=== PATIENT | female | born 1970 | race African-American/Black ===

== ENCOUNTER 2018-05-02 17:29 | Inpatient (IN) ==
[2018-05-02] MEDS ORDERED: ENOXAPARIN 30 MG/0.3 ML SYRINGE SUBCUT STA (19:08)
[2018-05-02 19:11] LABS: Basophils % 0.1 % (0.0-0.8); Immature Granulocytes % 0.6 %; Immature Granulocytes Absolute 0.11 #; Lymphocytes % 5.6 % (21.3-54.2); Mean Corpuscular HGB Conc 25.3 GM/DL (32-36); Mean Corpuscular Hemoglobin 16 PG (27-34); Mean Platelet Volume 10.2 FL (9.6-12.0); Monocytes # 1.3 10*3/uL (0.11-0.8); Monocytes % 7.3 % (1.7-12.7); NRBC # 0.03 10*3/uL; Neutrophils # 15.8 10*3/uL (1.4-7.4); Neutrophils % 86.4 % (38.7-73.9); Platelet Count 446 T/CUMM (130-400); Red Blood Count 4.08 MC/CUMM (3.8-5.5); White Blood Count 18.3 T/CUMM (4-12)
[2018-05-02] MEDS ORDERED: ENOXAPARIN 100 MG/ML SYRINGE SUBCUT ONE (19:19)
[2018-05-02 19:27] LABS: Hematocrit 25.5 VOL% (35.7-47.0)
[2018-05-02 19:28] LABS: Hemoglobin 6.7 GM/DL (12.0-16.0)
[2018-05-02 19:37] LABS: Alanine Aminotransferase 14 U/L (13-56); Albumin 2.7 G/DL (3.4-5.0); Alkaline Phosphatase 68 U/L (45-117); Aspartate Amino Transferase 16 U/L (0-37); Bilirubin,Total < 0.39 MG/DL (0.2-1.0); Blood Urea Nitrogen 19 MG/DL (7-18); Calcium 10.8 MG/DL (8.5-10.1); Glucose 120 MG/DL (74-106); Osmolality,Calculated 277.7 MOS/KG (273-304); Sodium 138 MMOL/L (136-145); Total Protein 8.3 G/DL (6.4-8.3)
[2018-05-02] MEDS ORDERED: MORPHINE 4 MG/1 ML VIAL IV PRN (22:05)
[2018-05-02] MEDS ORDERED: ACETAMINOPHEN 325 MG TABLET PO PRN (22:05)
[2018-05-02] MEDS ORDERED: ONDANSETRON 4 MG/2 ML VIAL IV PRN (22:05)
[2018-05-02] MEDS: IRON (CARBONYL)/VIT C/B12/FA TABLET PO SCH (23:16)
[2018-05-03 06:11] LABS: PT Patient Result 10.3 SECS; Partial Thromboplastin Time 23.8 SECS (0-40)
[2018-05-03 06:19] LABS: % Iron Saturation 3.6 % (18-50); Ferritin 19.4 ng/ml (8-252)
[2018-05-03 06:51] LABS: Basophils % 0.1 % (0.0-0.8); Eosinophils % 0.1 % (0.00-10.9); Hematocrit 21.7 VOL% (35.7-47.0); Immature Granulocytes % 0.7 %; Immature Granulocytes Absolute 0.14 #; Lymphocytes # 1.8 10*3/uL (1.4-4.0); Lymphocytes % 9.1 % (21.3-54.2); Mean Corpuscular HGB Conc 26.3 GM/DL (32-36); Mean Corpuscular Hemoglobin 17 PG (27-34); Mean Corpuscular Volume 64.8 FL (87-102); Mean Platelet Volume 10.1 FL (9.6-12.0); Monocytes # 1.6 10*3/uL (0.11-0.8); Monocytes % 8.3 % (1.7-12.7); NRBC # 0.04 10*3/uL; Neutrophils # 15.8 10*3/uL (1.4-7.4); Neutrophils % 81.7 % (38.7-73.9); Platelet Count 322 T/CUMM (130-400); Red Blood Count 3.35 MC/CUMM (3.8-5.5); Red Cell Distribution Width 18.8 % (9.3-17.3); White Blood Count 19.3 T/CUMM (4-12)
[2018-05-03 06:52] LABS: Folate 17.4 NG/ML (5.4-24.0); Vitamin B12 205 PG/ML (211-911)
[2018-05-03 06:58] LABS: Hemoglobin 5.7 GM/DL (12.0-16.0)
[2018-05-03] MEDS ORDERED: SODIUM CHLORIDE 0.9% 1,000 ML IV PRN (07:10)
[2018-05-03 07:42] LABS: Calcium 10.2 MG/DL (8.5-10.1); Potassium 3.8 MMOL/L (3.5-5.1)
[2018-05-03 07:47] LABS: Hypochromasia 1+; Macrocytosis Slight; Ovalocytes Slight; Platelet Estimate Adequate; Polychromasia Slight
[2018-05-03 07:48] LABS: Target Cells Few
[2018-05-03] MEDS: LISINOPRIL/HCTZ 20-25 MG TABLET PO SCH (08:21)
[2018-05-03] MEDS: RIVAROXABAN 15 MG TABLET PO SCH ×2 (08:21→17:06)
[2018-05-03] MEDS: IRON (CARBONYL)/VIT C/B12/FA TABLET PO SCH ×2 (08:21→20:12)
[2018-05-03] MEDS: PANTOPRAZOLE 40 MG TABLET PO SCH (08:22)
[2018-05-03] MEDS: SERTRALINE 50 MG TABLET PO SCH (08:22)
[2018-05-03 08:38] LABS: Sedimentation Rate-Westergren 85 MM/HR (0-20)
[2018-05-03 09:48] LABS: Hemoglobin A1 (Alkaline) 97.4 % (96.5-98.5); Hemoglobin A2 (Alkaline) 2.6 % (1.5-3.5)
[2018-05-03 19:47] LABS: INR 1.1; PT Patient Result 11.9 SECS; Partial Thromboplastin Time 25.6 SECS (0-40)
[2018-05-04 03:38] LABS: Basophils % 0.1 % (0.0-0.8); Eosinophils # 0.2 10*3/uL (0.0-0.87); Eosinophils % 1.2 % (0.00-10.9); Hematocrit 26.4 VOL% (35.7-47.0); Immature Granulocytes % 0.4 %; Immature Granulocytes Absolute 0.05 #; Lymphocytes # 2.8 10*3/uL (1.4-4.0); Lymphocytes % 22.3 % (21.3-54.2); Mean Corpuscular HGB Conc 28.4 GM/DL (32-36); Mean Corpuscular Hemoglobin 19 PG (27-34); Mean Corpuscular Volume 68.2 FL (87-102); Mean Platelet Volume 10.7 FL (9.6-12.0); Monocytes % 7.7 % (1.7-12.7); NRBC # 0.03 10*3/uL; Neutrophils # 8.5 10*3/uL (1.4-7.4); Neutrophils % 68.3 % (38.7-73.9); Platelet Count 435 T/CUMM (130-400); Red Blood Count 3.87 MC/CUMM (3.8-5.5); Red Cell Distribution Width 22.5 % (9.3-17.3); White Blood Count 12.5 T/CUMM (4-12)
[2018-05-04 03:51] LABS: Calcium 9.8 MG/DL (8.5-10.1); Potassium 3.6 MMOL/L (3.5-5.1)
[2018-05-04 03:57] LABS: Hemoglobin 7.5 GM/DL (12.0-16.0)
[2018-05-04] MEDS: PANTOPRAZOLE 40 MG TABLET PO SCH (08:25)
[2018-05-04] MEDS: SERTRALINE 50 MG TABLET PO SCH (08:25)
[2018-05-04] MEDS: IRON (CARBONYL)/VIT C/B12/FA TABLET PO SCH (08:25)
[2018-05-04] MEDS: RIVAROXABAN 15 MG TABLET PO SCH (08:25)
[2018-05-04] MEDS: LISINOPRIL/HCTZ 20-25 MG TABLET PO SCH (08:27)
[2018-05-04 11:33] VITALS: BP 134/77
[2018-05-07 14:46] LABS: Protein S Activity Plasma 153 % (50 - 160)
[2018-05-07 14:58] LABS: Protein C Activity Plasma 96 % (70 - 150)
[2018-05-08 15:10] LABS: Protein C Antigen 76 % (70-150)
== END 2018-05-04 15:28 | disposition home or self-care (01) | DRG 176 ==
LOC: N.ED 17:29 → N.EDINP 21:04 → N.TELES 21:41
PROVIDERS: ADMIT Internal Medicine Nephrology; ATTEND Internal Medicine Nephrology

== ENCOUNTER 2018-05-13 16:56 | Inpatient (IN) ==
[2018-05-13] MEDS ORDERED: SODIUM CHLORIDE 0.9% 1,000 ML IV PRN ×2 (18:38→18:39)
[2018-05-13 18:44] LABS: Basophils % 0.1 % (0.0-0.8); Eosinophils % 0.4 % (0.00-10.9); Hematocrit 24.6 VOL% (35.7-47.0); Immature Granulocytes % 0.6 %; Immature Granulocytes Absolute 0.06 #; Lymphocytes # 1.1 10*3/uL (1.4-4.0); Mean Corpuscular HGB Conc 28.5 GM/DL (32-36); Mean Corpuscular Hemoglobin 20 PG (27-34); Mean Corpuscular Volume 69.5 FL (87-102); Monocytes # 1.5 10*3/uL (0.11-0.8); Monocytes % 14.5 % (1.7-12.7); Neutrophils # 7.6 10*3/uL (1.4-7.4); Neutrophils % 73.4 % (38.7-73.9); Red Blood Count 3.54 MC/CUMM (3.8-5.5); Red Cell Distribution Width 23.9 % (9.3-17.3); White Blood Count 10.4 T/CUMM (4-12)
[2018-05-13 18:47] LABS: Platelet Count 1269 T/CUMM (130-400)
[2018-05-13 18:59] LABS: Alanine Aminotransferase 17 U/L (13-56); Albumin 2.7 G/DL (3.4-5.0); Alkaline Phosphatase 61 U/L (45-117); Aspartate Amino Transferase 23 U/L (0-37); Bilirubin,Total < 0.39 MG/DL (0.2-1.0); Blood Urea Nitrogen 18 MG/DL (7-18); Calcium 10.2 MG/DL (8.5-10.1); Glucose 121 MG/DL (74-106); Osmolality,Calculated 270.2 MOS/KG (273-304); Potassium 3.4 MMOL/L (3.5-5.1); Sodium 134 MMOL/L (136-145); Total Protein 8.7 G/DL (6.4-8.3); Troponin I Only < 0.015 NG/ML (0.00-0.045)
[2018-05-13 19:17] LABS: Platelet Estimate Increased
[2018-05-13] MEDS ORDERED: SODIUM CHLORIDE 0.9% 1,000 ML IV STA (19:38)
[2018-05-13] MEDS ORDERED: MORPHINE 4 MG/1 ML VIAL IV PRN (20:28)
[2018-05-13] MEDS ORDERED: ACETAMINOPHEN 325 MG TABLET PO PRN (21:08)
[2018-05-13] MEDS ORDERED: ONDANSETRON 4 MG/2 ML VIAL IV PRN (21:08)
[2018-05-13] MEDS ORDERED: ACETAMINOPHEN/CODEINE 300-30 MG TABLET PO PRN (21:08)
[2018-05-13] MEDS ORDERED: guaiFENesin/DM ER 600-30 MG TABLET PO PRN (21:08)
[2018-05-13] MEDS ORDERED: PNEUMOCOCCAL VACCINE (13 VALENT) 0.5 ML SYRINGE IM ONE (21:26)
[2018-05-13] MEDS: IRON (CARBONYL)/VIT C/B12/FA TABLET PO SCH (21:33)
[2018-05-13] MEDS: RIVAROXABAN 15 MG TABLET PO SCH (21:33)
[2018-05-14 07:19] LABS: Basophils % 0.3 % (0.0-0.8); Eosinophils # 0.1 10*3/uL (0.0-0.87); Eosinophils % 1.8 % (0.00-10.9); Hematocrit 25.2 VOL% (35.7-47.0); Hemoglobin 7.4 GM/DL (12.0-16.0); Immature Granulocytes % 0.4 %; Immature Granulocytes Absolute 0.03 #; Lymphocytes # 1.5 10*3/uL (1.4-4.0); Lymphocytes % 21.2 % (21.3-54.2); Mean Corpuscular HGB Conc 29.4 GM/DL (32-36); Mean Corpuscular Hemoglobin 22 PG (27-34); Mean Corpuscular Volume 73.5 FL (87-102); Mean Platelet Volume 8.6 FL (9.6-12.0); Monocytes # 1.2 10*3/uL (0.11-0.8); Monocytes % 16.3 % (1.7-12.7); Neutrophils # 4.3 10*3/uL (1.4-7.4); Platelet Count 948 T/CUMM (130-400); Red Blood Count 3.43 MC/CUMM (3.8-5.5); Red Cell Distribution Width 24.1 % (9.3-17.3); White Blood Count 7.2 T/CUMM (4-12)
[2018-05-14 07:43] LABS: Lymphocytes 20 % (20-55); Segmented Neutrophils 66 % (50-85); Total Cells Counted 100
[2018-05-14 07:44] LABS: Hypochromasia 1+; Microcytosis 1+
[2018-05-14 07:52] LABS: Calcium 10.1 MG/DL (8.5-10.1); Osmolality,Calculated 273.8 MOS/KG (273-304); Potassium 3.7 MMOL/L (3.5-5.1)
[2018-05-14] MEDS: SERTRALINE 50 MG TABLET PO SCH (08:21)
[2018-05-14] MEDS: LISINOPRIL/HCTZ 20-25 MG TABLET PO SCH (08:21)
[2018-05-14] MEDS: IRON (CARBONYL)/VIT C/B12/FA TABLET PO SCH (08:21)
[2018-05-14] MEDS: RIVAROXABAN 15 MG TABLET PO SCH ×2 (08:21→18:24)
[2018-05-14] MEDS: PANTOPRAZOLE 40 MG TABLET PO SCH (08:21)
[2018-05-14] MEDS ORDERED: AZITHROMYCIN 250 MG TABLET PO SCH (09:00)
[2018-05-14] MEDS ORDERED: SODIUM CHLORIDE 0.9% 1,000 ML IV PRN (13:02)
[2018-05-14] MEDS: FERROUS SULFATE 325 MG TABLET PO SCH (20:18)
[2018-05-14] MEDS ORDERED: DOCUSATE SODIUM 100 MG CAPSULE PO PRN (22:49)
[2018-05-15 04:56] LABS: Basophils % 0.3 % (0.0-0.8); Eosinophils # 0.2 10*3/uL (0.0-0.87); Eosinophils % 2.6 % (0.00-10.9); Hematocrit 26.5 VOL% (35.7-47.0); Hemoglobin 8.1 GM/DL (12.0-16.0); Immature Granulocytes % 0.1 %; Immature Granulocytes Absolute 0.01 #; Lymphocytes # 2.1 10*3/uL (1.4-4.0); Lymphocytes % 27.5 % (21.3-54.2); Mean Corpuscular HGB Conc 30.6 GM/DL (32-36); Mean Corpuscular Hemoglobin 22 PG (27-34); Mean Platelet Volume 8.8 FL (9.6-12.0); Monocytes # 0.8 10*3/uL (0.11-0.8); Monocytes % 10.3 % (1.7-12.7); Neutrophils # 4.5 10*3/uL (1.4-7.4); Neutrophils % 59.2 % (38.7-73.9); Platelet Count 938 T/CUMM (130-400); Red Blood Count 3.63 MC/CUMM (3.8-5.5); Red Cell Distribution Width 24.3 % (9.3-17.3); White Blood Count 7.6 T/CUMM (4-12)
[2018-05-15 05:25] LABS: Albumin 2.4 G/DL (3.4-5.0); Bilirubin,Total 0.4 MG/DL (0.2-1.0); Calcium 10.1 MG/DL (8.5-10.1); Osmolality,Calculated 273.7 MOS/KG (273-304); Potassium 3.5 MMOL/L (3.5-5.1); Total Protein 7.3 G/DL (6.4-8.3)
[2018-05-15 05:28] LABS: Hypochromasia 2+; Microcytosis 1+; Platelet Estimate Increased; Polychromasia Slight; Target Cells Few
[2018-05-15 05:29] LABS: Burr Cells Few
[2018-05-15] MEDS: RIVAROXABAN 15 MG TABLET PO SCH ×2 (08:51→20:14)
[2018-05-15] MEDS: SERTRALINE 50 MG TABLET PO SCH (08:51)
[2018-05-15] MEDS: PANTOPRAZOLE 40 MG TABLET PO SCH (08:51)
[2018-05-15] MEDS: LISINOPRIL/HCTZ 20-25 MG TABLET PO SCH (08:51)
[2018-05-15] MEDS: FERROUS SULFATE 325 MG TABLET PO SCH ×3 (08:51→20:15)
[2018-05-15] MEDS: CYANOCOBALAMIN 1000 MCG/1 ML VIAL SUBCUT SCH (08:52)
[2018-05-15 11:43] LABS: Hematocrit 28.7 VOL% (35.7-47.0)
[2018-05-15] MEDS: VANCOMYCIN INJ 1,250 MG in SODIUM CHLORIDE 0.9% 250 ML IV SCH ×2 (13:35→20:10)
[2018-05-16] MEDS: VANCOMYCIN INJ 1,250 MG in SODIUM CHLORIDE 0.9% 250 ML IV SCH ×2 (03:01→11:55)
[2018-05-16 05:58] LABS: Basophils % 0.4 % (0.0-0.8); Eosinophils # 0.2 10*3/uL (0.0-0.87); Eosinophils % 3.6 % (0.00-10.9); Hematocrit 28.8 VOL% (35.7-47.0); Hemoglobin 8.8 GM/DL (12.0-16.0); Immature Granulocytes % 0.3 %; Immature Granulocytes Absolute 0.02 #; Lymphocytes % 29.6 % (21.3-54.2); Mean Corpuscular HGB Conc 30.6 GM/DL (32-36); Mean Corpuscular Hemoglobin 23 PG (27-34); Mean Corpuscular Volume 74.8 FL (87-102); Mean Platelet Volume 8.8 FL (9.6-12.0); Monocytes # 0.5 10*3/uL (0.11-0.8); Neutrophils # 3.9 10*3/uL (1.4-7.4); Neutrophils % 58.1 % (38.7-73.9); Platelet Count 836 T/CUMM (130-400); Red Blood Count 3.85 MC/CUMM (3.8-5.5); Red Cell Distribution Width 24.4 % (9.3-17.3); White Blood Count 6.8 T/CUMM (4-12)
[2018-05-16 06:21] LABS: Giant Platelets 1+; Hypochromasia 3+; Platelet Estimate Increased; Target Cells 2+
[2018-05-16 06:22] LABS: Acanthocytes Few; Anisocytosis 3+; Macrocytosis 1+; Microcytosis 2+
[2018-05-16 06:26] LABS: Calcium 10.3 MG/DL (8.5-10.1); Osmolality,Calculated 272.7 MOS/KG (273-304); Potassium 3.6 MMOL/L (3.5-5.1)
[2018-05-16] MEDS: PANTOPRAZOLE 40 MG TABLET PO SCH (09:10)
[2018-05-16] MEDS: LISINOPRIL/HCTZ 20-25 MG TABLET PO SCH (09:10)
[2018-05-16] MEDS: FERROUS SULFATE 325 MG TABLET PO SCH ×3 (09:10→20:46)
[2018-05-16] MEDS: CYANOCOBALAMIN 1000 MCG/1 ML VIAL SUBCUT SCH (09:10)
[2018-05-16] MEDS: SERTRALINE 50 MG TABLET PO SCH (09:10)
[2018-05-16] MEDS: RIVAROXABAN 15 MG TABLET PO SCH ×2 (09:10→16:25)
[2018-05-16] MEDS: amLODIPine 5 MG TABLET PO SCH (11:29)
[2018-05-16] MEDS: POLYETHYLENE GLYCOL POWDER 17 GM PACK PO SCH (12:53)
[2018-05-16] MEDS: DOCUSATE SODIUM 100 MG CAPSULE PO SCH ×2 (12:53→20:46)
[2018-05-16] MEDS ORDERED: VANCOMYCIN INJ 2,250 MG in SODIUM CHLORIDE 0.9% 500 ML IV ONE (20:00)
[2018-05-17] MEDS ORDERED: VANCOMYCIN INJ 1,250 MG in SODIUM CHLORIDE 0.9% 250 ML IV SCH (04:00)
[2018-05-17 06:43] LABS: Calcium 10.2 MG/DL (8.5-10.1); Osmolality,Calculated 273.5 MOS/KG (273-304); Potassium 3.6 MMOL/L (3.5-5.1)
[2018-05-17] MEDS: CYANOCOBALAMIN 1000 MCG/1 ML VIAL SUBCUT SCH (08:22)
[2018-05-17] MEDS: LISINOPRIL/HCTZ 20-25 MG TABLET PO SCH (08:23)
[2018-05-17] MEDS: DOCUSATE SODIUM 100 MG CAPSULE PO SCH (08:23)
[2018-05-17] MEDS: SERTRALINE 50 MG TABLET PO SCH (08:23)
[2018-05-17] MEDS: FERROUS SULFATE 325 MG TABLET PO SCH (08:23)
[2018-05-17] MEDS: amLODIPine 5 MG TABLET PO SCH (08:23)
[2018-05-17] MEDS: RIVAROXABAN 15 MG TABLET PO SCH (08:23)
[2018-05-17] MEDS: PANTOPRAZOLE 40 MG TABLET PO SCH (08:24)
[2018-05-17] MEDS: POLYETHYLENE GLYCOL POWDER 17 GM PACK PO SCH (08:24)
[2018-05-17 10:13] VITALS: BP 151/85
[2018-05-17] MEDS ORDERED: metOLazone 5 MG TABLET PO ONE (11:30)
== END 2018-05-17 14:15 | disposition home or self-care (01) | DRG 175 ==
LOC: N.ED 16:56 → N.EDINP 20:04 → SUATTDRO 20:04 → N.4E 21:03
PROVIDERS: ADMIT Internal Medicine; ATTEND Hospitalist